=== PATIENT | male | born 1985 | race Caucasian/White ===

== ENCOUNTER 2016-10-01 03:11 | Emergency (ER) | payer OTHER | END 2016-10-01 05:50 | disposition home or self-care (01) | LOC: ER 03:11 | DX: R07.2 Precordial pain (principal); F15.10 Other stimulant abuse, uncomplicated; E87.6 Hypokalemia; I10 Essential (primary) hypertension; K21.9 Gastro-esophageal reflux disease without esophagitis; R00.2 Palpitations; R06.02 Shortness of breath; F17.210 Nicotine dependence, cigarettes, uncomplicated; Z79.899 Other long term (current) drug therapy; Z88.1 Allergy status to other antibiotic agents | CPT/HCPCS: 36415 ==